=== PATIENT | female | born 1995 | race Caucasian/White ===

== ENCOUNTER 2021-07-13 15:17 | Emergency (ER) | payer OTHER ==
[~2021-07-13 15:17] MED LIST: BENADRYL 50MG C50 MG PO; COLACE 100MG C100 MG PO; KEFLEX CAP 500500 MG PO
[2021-07-13 15:56] LABS: HEMOGLOBIN 14.1 gm/dl (12.3-15.3); RED BLOOD COUNT 4.8 M/UL (4.00-5.10); WHITE BLOOD COUNT 7.6 K/UL (4.5-11.0)
[2021-07-13 16:31] LABS: BUN/CREATININE RATIO 13 (0-10)
== END 2021-07-13 19:45 | disposition home or self-care (01) ==
LOC: ER1 15:17
PROVIDERS: Emergency Medicine
DX: R00.2 Palpitations (principal); R06.00 Dyspnea, unspecified; R03.0 Elevated blood-pressure reading, without diagnosis of hypertension; Z87.891 Personal history of nicotine dependence
CPT/HCPCS: 71045; 80053; 82550; 82553; 84439; 84443; 84484; 84703; 85025; 93005; 99285

== ENCOUNTER 2021-10-03 03:59 | Emergency (ER) | payer OTHER ==
[~2021-10-03 03:59] MED LIST changes: +AMOXICILLIN875 MG PO; +CLONIDINE HCL0.2 MG PO; +EXCEDRIN EXTRA1 EACH PO; +FLOVENT 440.088 GM/I INH; +MEDROXYPRO150 MG/11 IM; +METOPROLOL SUCC50 MG PO; +NICOTINE PATCH1 EAC2 TD; +ONDANSETRON ODT8 MG PO; +PROMETHAZINE HC25 M1 PO; +PROZAC 20 MG CA20 MG PO; +ROBAXIN 750 MG750 MG PO
== END 2021-10-03 05:38 | disposition home or self-care (01) ==
LOC: ER1 03:59
DX: K91.840 Postprocedural hemorrhage of a digestive system organ or structure following a digestive system procedure (principal); K06.8 Other specified disorders of gingiva and edentulous alveolar ridge; F17.200 Nicotine dependence, unspecified, uncomplicated
CPT/HCPCS: 99282

== ENCOUNTER → 2021-11-04 | Outpatient (CLI) | payer OTHER | LOC: HEART 5 14:20 | DX: I73.9 Peripheral vascular disease, unspecified (principal) ==